=== PATIENT | female | born 1995 | race African-American/Black ===

== ENCOUNTER 2018-09-27 14:07 | Inpatient (IN) | payer BC, OTHER ==
[~2018-09-27] VITALS: Ht 170.2 cm; Wt 127.0 kg
[2018-09-27 14:22] VITALS: BP 157/85
[2018-09-27 15:22] LABS: ABSOLUTE NEUTROPHILS 4.8 thou/uL (1.4-8.2); BASOPHILS 0.2 % (0.0-2.0); EOSINOPHILS 0.6 % (0.0-3.0); HEMATOCRIT 40.8 % (37.0-47.0); HEMOGLOBIN 13.5 gm/dL (12.0-15.0); LYMPHOCYTES 13.6 % (24.0-44.0); MCH 26.8 pg (26.0-34.0); MCHC 33.2 g/dL (28.0-37.0); MCV 80.6 fL (80.0-100.0); MONOCYTES 8.2 % (1.0-8.0); POLYS 77.4 % (36.0-66.0); RBC 5.06 mil/uL (4.20-5.00); RDW 13.8 % (10.5-14.5); WBC 6.2 thou/uL (4.0-11.0)
[2018-09-27 15:29] LABS: CALCIUM 9.1 mg/dL (8.5-10.1); CREATININE 0.8 mg/dL (0.6-1.0); POTASSIUM 3.2 mmol/L (3.5-5.1)
[2018-09-27 15:35] LABS: ALBUMIN 3.9 g/dL (3.4-5.0); MAGNESIUM 1.7 mg/dL (1.8-2.4); TOTAL BILIRUBIN 0.2 mg/dL (<0.1-1.0); TOTAL PROTEIN 7.7 g/dL (6.4-8.2)
[2018-09-27 15:50] LABS: LARGE PLATELETS RARE; PLATELET COUNT 221 thou/uL (150-400)
[2018-09-27 17:53] VITALS: BP 133/70
[2018-09-27] MEDS ORDERED: PREDNISONE 10 M10 MG PO (18:02)
[2018-09-27] MEDS ORDERED: QSYMIA 7.5 MG-1 EACH PO (18:02)
[2018-09-27 18:48] LABS: BE(vivo) -7.1 mmol/L (-2 to +3); HCO3 16.1 mmol/L (22.0-26.0); PCO2 26.4 mmHg (35.0-45.0); PO2 72.5 mmHg (80.0-100.0); pH 7.402 (7.360-7.450); sO2 94.9 % (92.0-98.0)
[2018-09-27 19:05] VITALS: BP 129/69
[2018-09-27 19:25] VITALS: BP 136/102
[2018-09-27] MEDS ORDERED: PROAIR RESPICL90 MCG INH (20:12)
[2018-09-28 00:51] VITALS: BP 163/83
[2018-09-28 04:00] VITALS: BP 153/74
--- NOTE | 2018-09-28 06:15 | NUR ---
PATIENT IS ALERT AND ORIENTED. PATIENT IS UP AD MARISA. PATIENT NSR TO SA ON TELE. PATIENT IS PENDING US TO LEG AND VQ SCANE TODAY. PATIENTS BM WAS THE 2ND. PATIENTS SOB IMPROVED WITH RT. PATIENTS PAIN IS CONTROLLED WITH MEDS. PAIN IS MENSTRAL CRAMPS. PATIENT IS RESTING COMFORTABLY IN BED. WCM. PATIENT IS PROGRESSING TO GOALS.
[2018-09-28 06:57] LABS: HEMATOCRIT 42.3 % (37.0-47.0); HEMOGLOBIN 13.7 gm/dL (12.0-15.0); MCH 26.3 pg (26.0-34.0); MCHC 32.4 g/dL (28.0-37.0); MCV 81.3 fL (80.0-100.0); RBC 5.21 mil/uL (4.20-5.00); RDW 14.3 % (10.5-14.5)
[2018-09-28 07:09] LABS: CREATININE 0.7 mg/dL (0.6-1.0); MAGNESIUM 2.3 mg/dL (1.8-2.4); POTASSIUM 3.9 mmol/L (3.5-5.1)
[2018-09-28 07:27] VITALS: BP 144/70
[2018-09-28 11:04] VITALS: BP 139/76
[2018-09-28 15:45] VITALS: BP 146/74
--- NOTE | 2018-09-28 18:19 | NUR ---
PATIENT IS ALERT ORIENTED X4. SHE AMBULATES WITH NO DIFFICULTY. SHE DID COMPLAIN OF ABDOMINAL CRAMPS THIS AM AND A COMBINATION OF TYLENOL AND IBUPROFEN SEEMED TO HAVE CONTROLLED THE PAIN. NOTED TO HAVE OCCASIONAL SOB. BREATHING TX ADMINISTERED BY RT. PRN MEDS ADMINISTERED. WILL CONT WITH PLAN OF CARE.
[2018-09-28 19:19] VITALS: BP 149/61
[2018-09-29 04:35] VITALS: BP 142/55
[2018-09-29 05:28] LABS: HEMATOCRIT 41.3 % (37.0-47.0); HEMOGLOBIN 13.4 gm/dL (12.0-15.0); MCH 26.3 pg (26.0-34.0); MCHC 32.4 g/dL (28.0-37.0); MCV 81.1 fL (80.0-100.0); RBC 5.09 mil/uL (4.20-5.00); RDW 14.3 % (10.5-14.5); WBC 7.3 thou/uL (4.0-11.0)
[2018-09-29 05:48] LABS: CREATININE 0.6 mg/dL (0.6-1.0); POTASSIUM 4.6 mmol/L (3.5-5.1)
--- NOTE | 2018-09-29 05:56 | NUR ---
PT PROGRESSING TOWARDS DC GOALS AND SHOULD BE ABLE TO DC TODAY. PT UP AD MARISA TO BATHROOM. APPETITE VERY HEALTHY ATE FULL DINNER, NUMEROUS SNACKS, AND PT ORDERING SUDANESE FOOD AT APPROX 2100. PT COMPLAINS OF HAVING ACCU CHECKS DONE. EDUCATED PT ON REASON WHY WITH STEROIDS BEING GIVEN. VSS AND NO COMPLAINTS OF PAIN. HOURLY ROUNDING. POC WITH BREATHING TX AND IV METHYLPRED.
[2018-09-29 07:04] VITALS: BP 136/86
--- NOTE | 2018-09-29 10:31 | NUR ---
care of pt assumed this am @ ~0700. pt up ad terry in room. pt had a good appetite for breakfast, requesting more ice water. pt requested to take a shower this am. pt denies co pain, no soa (bu co of wheezes) and no n/v/d at this time. pt looking forward to seeing her doctor this am as she is curious about when she will be dc'd, but does not want to go "too soon" such that she willl have to return within a few days (as she states this has happened to her before).
[2018-09-29 11:19] VITALS: BP 157/67
[2018-09-29 15:23] VITALS: BP 119/46
[2018-09-29 18:56] VITALS: BP 149/79
[2018-09-30] VITALS (7 sets, daily range): BP systolic 144–164; BP diastolic 78–86
--- NOTE | 2018-09-30 06:02 | NUR ---
PT STATES SHE IS READY FOR HOME, BUT DOES NOT WANT TO RETURN WITHIN DAYS. PT STATES NO N/V OR ANY PAIN. FOLLOWING POC WITH IV METHYLPRED. HOURLY ROUNDING.
--- NOTE | 2018-09-30 14:16 | NUR ---
care of pt assumed this am @ 0700. pt verbalized that she is feeling much better today and believes she is ready to go home today. pt denies soa, no n/v/d and no pain today. pt verbalized a productive cough today. pt w/ a good appetite for food and fluid today. pt has enjoyed the company of a female friend most of the afternoon. awaiting potential dc from dr. kasper.
[2018-09-30] MEDS ORDERED: PROAIR RESPICL90 MCG INH (14:43)
[2018-09-30] MEDS ORDERED: PREDNISONE 10 M10 MG PO (14:44)
[2018-10-02 23:09] LABS: ADENOVIRUS Negative (Negative); INFLUENZA A Negative (Negative); INFLUENZA B Negative (Negative); PARAINFLUENZA 1 Negative (Negative); PARAINFLUENZA 2 Negative (Negative); PARAINFLUENZA 3 Negative (Negative); RHINOVIRUS Negative (Negative); RSV A Negative (Negative); RSV B Negative (Negative)
== END 2018-09-30 18:38 | disposition home or self-care (01) | DRG 189 ==
LOC: ER 14:07 → EROBS 18:07 → 3W 18:07
PROVIDERS: Emergency Medicine; Nurse Practitioner Acute Care; ADMIT Hospitalist
DX: J96.20 Acute and chronic respiratory failure, unspecified whether with hypoxia or hypercapnia (principal); J45.901 Unspecified asthma with (acute) exacerbation; Z68.41 Body mass index [BMI] 40.0-44.9, adult; E83.42 Hypomagnesemia; E66.01 Morbid (severe) obesity due to excess calories; R73.9 Hyperglycemia, unspecified; T38.0X5A Adverse effect of glucocorticoids and synthetic analogues, initial encounter; Y92.89 Other specified places as the place of occurrence of the external cause; Z79.51 Long term (current) use of inhaled steroids; Z79.899 Other long term (current) drug therapy
CPT/HCPCS: 10779; 10879

== ENCOUNTER 2019-01-05 12:09 | Inpatient (IN) | payer BC, OTHER ==
[~2019-01-05] VITALS: Ht 170.2 cm; Wt 131.5 kg
[~2019-01-05 12:09] MED LIST: PREDNISONE 10 M10 MG PO; PROAIR RESPICL90 MCG INH; QSYMIA 7.5 MG-1 EACH PO
[2019-01-05 12:21] VITALS: BP 150/58
[2019-01-05 13:01] LABS: ABSOLUTE NEUTROPHILS 5.6 thou/uL (1.4-8.2); BASOPHILS 0.3 % (0.0-2.0); EOSINOPHILS 5.9 % (0.0-3.0); HEMATOCRIT 42.6 % (37.0-47.0); HEMOGLOBIN 13.6 gm/dL (12.0-15.0); LYMPHOCYTES 18.2 % (24.0-44.0); MCH 26.5 pg (26.0-34.0); MCHC 31.9 g/dL (28.0-37.0); MCV 83.2 fL (80.0-100.0); MONOCYTES 7.5 % (1.0-8.0); POLYS 68.1 % (36.0-66.0); RBC 5.11 mil/uL (4.20-5.00); RDW 13.9 % (10.5-14.5); WBC 8.3 thou/uL (4.0-11.0)
[2019-01-05 13:09] LABS: CREATININE 0.6 mg/dL (0.6-1.0); POTASSIUM 4.1 mmol/L (3.5-5.1)
[2019-01-05 13:16] LABS: ALBUMIN 3.4 g/dL (3.4-5.0); TOTAL BILIRUBIN 0.3 mg/dL (<0.1-1.0)
[2019-01-05 14:00] LABS: PLATELET COUNT 181 thou/uL (150-400)
[2019-01-05 18:32] VITALS: BP 176/90
[2019-01-05 18:50] VITALS: BP 173/90
[2019-01-05 19:15] VITALS: BP 180/100
[2019-01-05 23:55] VITALS: BP 170/92
--- NOTE | 2019-01-06 01:00 | NUR ---
NEW PT ARRIVED THE UNIT AT CHANGE OF SHIFT. PT A&OX4. ADLIB IN THE ROOM. PT WAS HAVING SOME SOB WITH EXERTION, RECIEVED BREATHING TREATMENTS AND HAS BEEN GETTING IT Q4HRS. PT SHOWERED LAST NIGHT. PT HAD ELEVATED BP LAST NIGHT WHICH WAS COMMUNICATED TO THE VEGETABLE THINNER. BP THIS MORNING WAS STABLE. FRIEND @BEDSIDE. CALL ANNE WITHIN REACH. WILL CONT TO MONITOR
[2019-01-06 04:21] VITALS: BP 132/59
[2019-01-06 08:12] VITALS: BP 157/96
[2019-01-06 14:23] VITALS: BP 178/98
[2019-01-06 16:04] VITALS: BP 166/78
--- NOTE | 2019-01-06 17:20 | NUR ---
Received awake on bed. Due medications given as prescribed. On room air and regular breathing treatments. A+Ox4. With SL at L hand- patent and intact. Up ad terry. Pt complained of pain, due PRN pain meds given as prescribed. On blood sugar monitoring- taken and recorded. Pt complained that non caridac chest pain still ongoing despite giving PRN pain meds, pain exacerbated by coughing- Dr Parrish informed- may give PRN Robitussin AC q4 for coughing. Vital signs stable.
[2019-01-06 20:08] VITALS: BP 154/92
--- NOTE | 2019-01-07 04:04 | NUR ---
ASSUMED CARE AROUND 1900. AXOX4. PERSISTENT WHEEZING ON CONT BREATHING TX. NO S/S ACUTE DISTRESS NOTED OR REPORTED AT THIS TIME. WILL CONT TO MONITOR FOR ANY CHANGES IN CONDITION.
[2019-01-07 08:39] VITALS: BP 153/96
[2019-01-07] MEDS ORDERED: CIPRO250 M1 PO (10:48)
[2019-01-07] MEDS ORDERED: GUAIFEN-CODEINE10 ML PO (10:48)
[2019-01-07] MEDS ORDERED: PROAIR RESPICL90 MCG INH (10:48)
[2019-01-07] MEDS ORDERED: PREDNISONE 20 M20 MG PO (10:49)
[2019-01-07] MEDS ORDERED: IPRAT-ALBUT 0.5-3 ML INH (10:51)
[2019-01-07 11:16] VITALS: BP 153/96
--- NOTE | 2019-01-07 11:56 | NUR ---
Assumed pt care this am, vs stable. SOA upon exertion noted. Head of bed kept elevated. Non cardiac chest pain was verbalized managed with medication. POC followed blood sugard monitoring done. Wheezing still present, No other signs or verbalizations of distress have been noted. Diet and medications tolerated. DC instructions and prescriptions given to the pt. Pt is leaving with friend to go home.
== END 2019-01-07 12:03 | disposition home or self-care (01) | DRG 202 ==
LOC: ER 12:09 → EROBS 13:33 → 4W 19:07
PROVIDERS: Nurse Practitioner Family; ADMIT Hospitalist
DX: J45.901 Unspecified asthma with (acute) exacerbation (principal); Z68.42 Body mass index [BMI] 45.0-49.9, adult; E66.9 Obesity, unspecified; J20.9 Acute bronchitis, unspecified; Z79.899 Other long term (current) drug therapy
CPT/HCPCS: 10040